=== PATIENT | female | born 1980 | race Caucasian/White ===

== ENCOUNTER 2017-10-15 11:56 | Emergency (ER) | payer MEDICAID ==
[~2017-10-15] VITALS: Ht 157.5 cm; Wt 95.0 kg
[2017-10-15] MEDS ORDERED: METH-360 PO (12:38)
[2017-10-15] MEDS ORDERED: NAPR-56 PO (12:39)
[2017-10-15] MEDS ORDERED: ketorolac tromethamine 15mg/ml inj. IM ONE (12:40)
[2017-10-15 12:52] VITALS: BP 154/99
== END 2017-10-15 12:54 | disposition home or self-care (01) ==
LOC: ER 11:56
DX: G89.29 Other chronic pain (principal); M54.5 Low back pain; I10 Essential (primary) hypertension; J44.9 Chronic obstructive pulmonary disease, unspecified; Z79.899 Other long term (current) drug therapy; Z87.891 Personal history of nicotine dependence
CPT/HCPCS: 96372; 99283; J1885

== ENCOUNTER 2018-04-18 17:14 | Emergency (ER) | payer MEDICAID ==
[~2018-04-18] VITALS: Ht 157.5 cm; Wt 98.2 kg
[~2018-04-18 17:14] MED LIST: METH-360 PO
[2018-04-18 18:02] LABS: BASOPHILS # (AUTO) 0.1 X10'3 (0-0.2); BASOPHILS % (AUTO) 0.7 % (0-1); EOSINOPHILS # (AUTO) 0.4 X10'3 (0-0.9); EOSINOPHILS % (AUTO) 3.6 % (0-6); HEMATOCRIT 40.6 % (35.0-45.0); HEMOGLOBIN 13.9 g/dl (12.0-16.0); LYMPHOCYTES # (AUTO) 3.3 X10'3 (1.1-4.8); LYMPHOCYTES % (AUTO) 31.8 % (21-51); MEAN CORPUSCULAR HEMOGLOBIN 30.4 PG (27.0-31.0); MEAN CORPUSCULAR HGB CONC 34.1 % (33.0-36.5); MEAN CORPUSCULAR VOLUME 89.2 FL (78-98); MEAN PLATELET VOLUME 7.9 FL (7.4-10.4); MONOCYTES # (AUTO) 0.6 X10'3 (0-0.9); MONOCYTES % (AUTO) 5.9 % (2-12); PLATELET COUNT 353 X10'3 (140-440); RED BLOOD COUNT 4.56 X10'6 (4.20-5.60); RED CELL DISTRIBUTION WIDTH 12.8 % (11.5-14.5); WHITE BLOOD COUNT 10.3 X10'3 (4.5-11.0)
[2018-04-18 18:13] LABS: PROTHROMBIN TIME 9.9 SECONDS (9.0-12.0)
[2018-04-18 18:16] LABS: ALANINE AMINOTRANSFERASE 86 U/L (12-78); ALKALINE PHOSPHATASE 82 IU/L (46-116); ANION GAP 14 (8-16); ASPARTATE AMINO TRANSFERASE 37 U/L (10-37); BILIRUBIN,TOTAL 0.3 MG/DL (0.1-1.0); BLOOD UREA NITROGEN 18 MG/DL (7-18); BUN/CREATININE RATIO 17.1 (6.6-38.0); CALCIUM 9.2 MG/DL (8.5-10.1); CHLORIDE 102 MMOL/L (99-107); CREATININE 1.05 MG/DL (0.40-0.90); GLUCOSE 113 MG/DL (70-104); LIPASE 103 U/L (73-393); SODIUM 143 MMOL/L (135-145); TOTAL CARBON DIOXIDE 26.8 MMOL/L (24-32); TOTAL PROTEIN 8.1 G/DL (6.4-8.2); eGFR 59 ML/MIN
--- NOTE | 2018-04-18 19:00 | NUR ---
PT AWARE OF THE NEED FOR A URINE SAMPLE. SHE STATES SHE IS UNABLE TO GO AT THIS TIME. PT GIVEN WATER AND ENCOURAGED TO TRY WITHIN NEXT 30 MINS.
[2018-04-18 19:49] LABS: URINE HCG NEGATIVE (NEG)
[2018-04-18 19:57] LABS: CLARITY,URINE CLEAR (Clear); COLOR,URINE YELLOW (Yellow); GLUCOSE, URINE NEGATIVE (Neg); KETONES,URINE NEGATIVE (Neg); LEUKOCYTE ESTERASE ,URINE NEGATIVE (Neg); NITRITES, URINE NEGATIVE (Neg); OCCULT BLOOD,URINE MODERATE (Neg); PH,URINE 5.5 (4.8-8.0); PROTEIN,URINE NEGATIVE (Neg); UROBILINOGEN,URINE 0.2 E.U/dL (0.2-1.0)
[2018-04-18 19:58] LABS: UA COLLECTION TYPE CLN CATCH MIDSTREAM
[2018-04-18] MEDS ORDERED: hyDRALAzine 10mg tablet PO STA (19:58)
[2018-04-18] MEDS ORDERED: potassium 10mEq/100ml NS w/LIDOcaine (10mg/bag) IV ONE (20:00)
[2018-04-18] MEDS ORDERED: magnesium oxide 400mg tablet PO ONE (20:00)
[2018-04-18] MEDS ORDERED: potassium Cl 20 mEq SR tablet PO ONE (20:00)
[2018-04-18] MEDS ORDERED: iohexol 300mg/ml 100ml inj. ONE (20:03)
[2018-04-18 20:10] LABS: MAGNESIUM 2.1 MG/DL (1.5-2.4)
[2018-04-18 20:12] LABS: BACTERIA,URINE FEW /HPF (Neg); MUCUS STRANDS FEW /LPF (Neg); SQUAMOUS EPITHELIAL CELL,UR MODERATE /LPF (FEW); WBC,URINE 0-4 /HPF (0-4)
--- NOTE | 2018-04-18 20:12 | NUR ---
pt to CT
[2018-04-18] MEDS ORDERED: POTA20TA19 PO (21:14)
[2018-04-18 21:23] VITALS: BP 106/64
== END 2018-04-18 21:40 | disposition home or self-care (01) ==
LOC: ER 17:14
DX: E87.6 Hypokalemia (principal); I10 Essential (primary) hypertension; J44.9 Chronic obstructive pulmonary disease, unspecified; G89.29 Other chronic pain; M54.9 Dorsalgia, unspecified; E03.9 Hypothyroidism, unspecified
CPT/HCPCS: 36415; 74177; 80053; 81001; 81025; 83690; 83735; 84443; 85025; 85610; 96365; 99284; J3480; Q9967

== ENCOUNTER 2018-06-16 08:28 | Day surgery (SDC) | payer MEDICAID ==
[~2018-06-16] VITALS: Ht 157.5 cm; Wt 97.7 kg
[2018-06-16] VITALS (15 sets, daily range): BP systolic 92–123; BP diastolic 51–77
[2018-06-16] MEDS ORDERED: oxyCODONE IR 5mg (immed. release) tablet PO PRN (08:50)
[2018-06-16] MEDS ORDERED: normal saline 1000ml 1,000 ML IV SCH ×2 (08:50→10:38)
[2018-06-16] MEDS ORDERED: POTA10TA36 PO (09:21)
[2018-06-16] MEDS ORDERED: ISOS30TA10 PO (09:21)
[2018-06-16] MEDS ORDERED: FURO-149 PO (09:21)
[2018-06-16] MEDS ORDERED: PANT-47 PO (09:21)
[2018-06-16 09:28] LABS: BASOPHILS # (AUTO) 0.1 X10'3 (0-0.2); EOSINOPHILS # (AUTO) 0.3 X10'3 (0-0.9); EOSINOPHILS % (AUTO) 3.8 % (0-6); HEMATOCRIT 41.8 % (35.0-45.0); LYMPHOCYTES # (AUTO) 2.3 X10'3 (1.1-4.8); LYMPHOCYTES % (AUTO) 30.7 % (21-51); MEAN CORPUSCULAR HEMOGLOBIN 29.9 PG (27.0-31.0); MEAN CORPUSCULAR HGB CONC 33.4 g/dL (33.0-36.5); MEAN CORPUSCULAR VOLUME 89.7 FL (78-98); MEAN PLATELET VOLUME 8.1 FL (7.4-10.4); MONOCYTES # (AUTO) 0.6 X10'3 (0-0.9); MONOCYTES % (AUTO) 7.6 % (2-12); NEUTROPHILS # (AUTO) 4.2 X10'3 (1.8-7.7); NEUTROPHILS % (AUTO) 56.9 % (42-75); PLATELET COUNT 305 X10'3 (140-440); RED BLOOD COUNT 4.66 X10'6 (4.20-5.60); RED CELL DISTRIBUTION WIDTH 13.3 % (11.5-14.5); WHITE BLOOD COUNT 7.5 X10'3 (4.5-11.0)
[2018-06-16] MEDS ORDERED: ALBU18HF2 INH (09:34)
[2018-06-16] MEDS ORDERED: FLUT16SP2 BOTHNARES (09:34)
[2018-06-16] MEDS ORDERED: IBUP-1984 PO (09:34)
[2018-06-16] MEDS ORDERED: LEVO112T5 PO (09:34)
[2018-06-16] MEDS ORDERED: CETI10CA PO (09:34)
[2018-06-16] MEDS ORDERED: PRAZ5CAP PO (09:34)
[2018-06-16] MEDS ORDERED: NITR0.4T51 SL (09:34)
[2018-06-16] MEDS ORDERED: FLUO40CA10 PO (09:34)
[2018-06-16] MEDS ORDERED: ERGO500014 PO (09:34)
[2018-06-16] MEDS ORDERED: GABA-532 PO (09:34)
[2018-06-16] MEDS ORDERED: CHOL50004 PO (09:34)
[2018-06-16 09:35] LABS: ANION GAP 12 (8-16); BLOOD UREA NITROGEN 15 MG/DL (7-18); BUN/CREATININE RATIO 16.3 (6.6-38.0); CALCIUM 9.7 MG/DL (8.5-10.1); CHLORIDE 107 MMOL/L (99-107); CREATININE 0.92 MG/DL (0.40-0.90); GLUCOSE 101 MG/DL (70-104); POTASSIUM 3.7 MMOL/L (3.5-5.1); SODIUM 144 MMOL/L (135-145); TOTAL CARBON DIOXIDE 24.6 MMOL/L (24-32); eGFR 68 ML/MIN
[2018-06-16] MEDS ORDERED: ASPI-1265 PO (09:36)
[2018-06-16] MEDS ORDERED: TEMA15CA5 PO (09:36)
[2018-06-16 09:37] LABS: PROTHROMBIN TIME 9.7 SECONDS (9.0-12.0)
[2018-06-16] MEDS ORDERED: fentaNYL/PF 50MCG/1 ML 2ML syringe IV STA (09:54)
[2018-06-16] MEDS ORDERED: midazolam 2 mg/2 ml injection IV STA (09:54)
[2018-06-16] MEDS ORDERED: LIDOcaine 1% 30ml preserv. free vial IJ STA (10:14)
[2018-06-16] MEDS ORDERED: HYDROcodone/acetaminophen 5mg/325mg tablet PO PRN (10:40)
== END 2018-06-16 12:40 | disposition home or self-care (01) ==
LOC: SSTAY O 08:28
PROVIDERS: ATTEND Radiology Vascular & Interventional Radiology
DX: B27.19 Cytomegaloviral mononucleosis with other complication (principal); E03.9 Hypothyroidism, unspecified; Z91.012 Allergy to eggs; G47.33 Obstructive sleep apnea (adult) (pediatric); F43.10 Post-traumatic stress disorder, unspecified; F32.9 Major depressive disorder, single episode, unspecified; E78.5 Hyperlipidemia, unspecified; M54.5 Low back pain; Z87.442 Personal history of urinary calculi; Z98.890 Other specified postprocedural states
CPT/HCPCS: 36415; 47000; 76942; 80048; 85025; 85610; J2250; J3010; J3490; J7030

== ENCOUNTER 2018-12-25 14:05 | Emergency (ER) | payer MEDICAID ==
[~2018-12-25] VITALS: Ht 157.5 cm; Wt 90.0 kg
[~2018-12-25 14:05] MED LIST changes: +ALBU18HF2 INH; +ASPI-1265 PO; +CETI10CA PO; +CHOL50004 PO; +ERGO500014 PO; +FLUO40CA10 PO; +FLUT16SP2 BOTHNARES; +FURO-149 PO; +GABA-532 PO; +IBUP-1984 PO; +ISOS30TA10 PO; +LEVO112T5 PO; -METH-360 PO; +NITR0.4T51 SL; +PANT-47 PO; +POTA10TA36 PO; +PRAZ5CAP PO; +TEMA15CA5 PO
[2018-12-25 14:43] VITALS: BP 122/77
[2018-12-25 15:19] LABS: BASOPHILS # (AUTO) 0.1 X10'3 (0-0.2); BASOPHILS % (AUTO) 0.9 % (0-1); EOSINOPHILS # (AUTO) 0.3 X10'3 (0-0.9); EOSINOPHILS % (AUTO) 2.4 % (0-6); HEMATOCRIT 41.9 % (35.0-45.0); HEMOGLOBIN 14.1 g/dl (12.0-16.0); LYMPHOCYTES # (AUTO) 3.4 X10'3 (1.1-4.8); LYMPHOCYTES % (AUTO) 30.9 % (21-51); MEAN CORPUSCULAR HEMOGLOBIN 30.8 PG (27.0-31.0); MEAN CORPUSCULAR HGB CONC 33.6 g/dL (33.0-36.5); MEAN CORPUSCULAR VOLUME 91.6 FL (78-98); MEAN PLATELET VOLUME 7.9 FL (7.4-10.4); MONOCYTES # (AUTO) 0.9 X10'3 (0-0.9); MONOCYTES % (AUTO) 8.1 % (2-12); NEUTROPHILS # (AUTO) 6.4 X10'3 (1.8-7.7); NEUTROPHILS % (AUTO) 57.7 % (42-75); PLATELET COUNT 335 X10'3 (140-440); RED BLOOD COUNT 4.58 X10'6 (4.20-5.60); RED CELL DISTRIBUTION WIDTH 13.1 % (11.5-14.5)
[2018-12-25 15:34] LABS: ALANINE AMINOTRANSFERASE 46 U/L (12-78); ALBUMIN 3.7 G/DL (3.4-5.0); ALBUMIN/GLOBULIN RATIO 0.9 (1.1-1.5); ALKALINE PHOSPHATASE 86 IU/L (46-116); ANION GAP 13 (8-16); ASPARTATE AMINO TRANSFERASE 18 U/L (10-37); BILIRUBIN,TOTAL 0.3 MG/DL (0.1-1.0); BLOOD UREA NITROGEN 9 MG/DL (7-18); BUN/CREATININE RATIO 10.3 (6.6-38.0); CALCIUM 9.1 MG/DL (8.5-10.1); CHLORIDE 104 MMOL/L (99-107); CREATININE 0.87 MG/DL (0.40-0.90); GLUCOSE 92 MG/DL (70-104); POTASSIUM 3.4 MMOL/L (3.5-5.1); SODIUM 142 MMOL/L (135-145); TOTAL CARBON DIOXIDE 24.8 MMOL/L (24-32); TOTAL PROTEIN 7.7 G/DL (6.4-8.2); eGFR 72 ML/MIN
[2018-12-25] MEDS ORDERED: ondansetron/PF 4mg/2ml inj IV ONE (19:00)
[2018-12-25] MEDS ORDERED: normal saline 1000ML IV soln IVB ONE (19:00)
--- NOTE | 2018-12-25 19:01 | NUR ---
Patient complaining of headache on right side at [place]. Daughter states that she has been having temors, states that her whole body shakes and that she cannot not speak clearly when she has these episodes. Addendum: 12/25/18 at 1903 by RITA Incorrect patient disregard
[2018-12-25] MEDS ORDERED: ondansetron 4mg rapidly disintigrating tab PO ONE (19:05)
[2018-12-25] MEDS ORDERED: ONDA8TAB13 PO (19:14)
[2018-12-25 19:18] LABS: URINE HCG NEGATIVE (NEG)
[2018-12-25 19:20] LABS: COLOR,URINE YELLOW (Yellow); GLUCOSE, URINE NEGATIVE (Neg); KETONES,URINE NEGATIVE (Neg); LEUKOCYTE ESTERASE ,URINE NEGATIVE (Neg); NITRITES, URINE NEGATIVE (Neg); OCCULT BLOOD,URINE NEGATIVE (Neg); PH,URINE 5.5 (4.8-8.0); PROTEIN,URINE NEGATIVE (Neg); UROBILINOGEN,URINE 0.2 E.U/dL (0.2-1.0)
[2018-12-25 19:21] LABS: UA COLLECTION TYPE NON-SPECIFIED
[2018-12-25 19:22] LABS: CLARITY,URINE Clear (Clear)
== END 2018-12-25 19:31 | disposition home or self-care (01) ==
LOC: ER 14:06
DX: K76.9 Liver disease, unspecified (principal); R11.10 Vomiting, unspecified; R19.7 Diarrhea, unspecified; I10 Essential (primary) hypertension; J44.9 Chronic obstructive pulmonary disease, unspecified; G89.29 Other chronic pain; G47.30 Sleep apnea, unspecified; E03.9 Hypothyroidism, unspecified; Z87.442 Personal history of urinary calculi; Z79.82 Long term (current) use of aspirin; Z79.899 Other long term (current) drug therapy
CPT/HCPCS: 36415; 80053; 81003; 81025; 85025; 85610; 99283

== ENCOUNTER → 2019-11-30 | Emergency (ER) | payer MEDICAID ==
[~2019-11-30] VITALS: Ht 157.5 cm; Wt 92.3 kg
[~2019-11-30] MED LIST changes: +ONDA8TAB13 PO; +morphine 10mg/ml inj. IV ONE; +normal saline 1000ML IV soln IVB ONE; +ondansetron/PF 4mg/2ml inj IV ONE
[2019-11-30 09:08] LABS: BASOPHILS % (AUTO) 0.3 % (0-1); EOSINOPHILS # (AUTO) 0.3 X10'3 (0-0.9); HEMATOCRIT 42.1 % (35.0-45.0); HEMOGLOBIN 14.4 g/dl (12.0-16.0); LYMPHOCYTES # (AUTO) 2.8 X10'3 (1.1-4.8); LYMPHOCYTES % (AUTO) 35.2 % (21-51); MEAN CORPUSCULAR HEMOGLOBIN 31.4 PG (27.0-31.0); MEAN CORPUSCULAR HGB CONC 34.2 g/dL (33.0-36.5); MEAN CORPUSCULAR VOLUME 91.6 FL (78-98); MEAN PLATELET VOLUME 7.8 FL (7.4-10.4); MONOCYTES # (AUTO) 0.5 X10'3 (0-0.9); MONOCYTES % (AUTO) 6.5 % (2-12); NEUTROPHILS # (AUTO) 4.3 X10'3 (1.8-7.7); PLATELET COUNT 285 X10'3 (140-440); RED CELL DISTRIBUTION WIDTH 13.1 % (11.5-14.5); WHITE BLOOD COUNT 8.1 X10'3 (4.5-11.0)
[2019-11-30 09:19] LABS: ALANINE AMINOTRANSFERASE 92 U/L (12-78); ALBUMIN 3.9 G/DL (3.4-5.0); ALBUMIN/GLOBULIN RATIO 0.9 (1.1-1.5); ALKALINE PHOSPHATASE 81 IU/L (46-116); AMYLASE 47 U/L (25-115); ANION GAP 11 (8-16); ASPARTATE AMINO TRANSFERASE 36 U/L (10-37); BILIRUBIN,TOTAL 0.4 MG/DL (0.1-1.0); BLOOD UREA NITROGEN 11 MG/DL (7-18); BUN/CREATININE RATIO 14.9 (6.6-38.0); CALCIUM 9.4 MG/DL (8.5-10.1); CHLORIDE 106 MMOL/L (99-107); CREATININE 0.74 MG/DL (0.40-0.90); GLUCOSE 103 MG/DL (70-104); LIPASE 97 U/L (73-393); POTASSIUM 4.1 MMOL/L (3.5-5.1); SODIUM 140 MMOL/L (135-145); TOTAL CARBON DIOXIDE 23.4 MMOL/L (24-32); TOTAL PROTEIN 8.1 G/DL (6.4-8.2); eGFR 87 ML/MIN
--- NOTE | 2019-11-30 10:43 | NUR ---
pt out of room to CT
--- NOTE | 2019-11-30 10:57 | NUR ---
back from CT
[2019-11-30 11:14] VITALS: BP 121/74
--- NOTE | 2019-11-30 11:47 | NUR ---
sent pt to the bathroom for urine
[2019-11-30 12:01] LABS: CLARITY,URINE SLIGHTLY CLOUDY (Clear); COLOR,URINE YELLOW (Yellow); GLUCOSE, URINE NEGATIVE (Neg); KETONES,URINE NEGATIVE (Neg); LEUKOCYTE ESTERASE ,URINE NEGATIVE (Neg); NITRITES, URINE NEGATIVE (Neg); OCCULT BLOOD,URINE NEGATIVE (Neg); PH,URINE 5.5 (4.8-8.0); PROTEIN,URINE NEGATIVE (Neg); UROBILINOGEN,URINE 0.2 E.U/dL (0.2-1.0)
[2019-11-30 12:07] LABS: UA COLLECTION TYPE CLN CATCH MIDSTREAM
[2019-11-30 12:08] LABS: MUCUS STRANDS MODERATE /LPF (Neg)
[2019-11-30 12:09] LABS: BACTERIA,URINE 1+ /HPF (Neg); SQUAMOUS EPITHELIAL CELL,UR MODERATE /LPF (FEW)
[2019-11-30 12:10] LABS: RBC,URINE 0-2 /HPF (0-2); WBC,URINE 0-4 /HPF (0-4)
== END | disposition home or self-care (01) ==
LOC: ER 08:35
DX: K80.20 Calculus of gallbladder without cholecystitis without obstruction (principal); K76.0 Fatty (change of) liver, not elsewhere classified; N20.0 Calculus of kidney; I10 Essential (primary) hypertension; J44.9 Chronic obstructive pulmonary disease, unspecified; G47.30 Sleep apnea, unspecified; G89.29 Other chronic pain; E03.9 Hypothyroidism, unspecified; Z98.890 Other specified postprocedural states; Z88.6 Allergy status to analgesic agent; Z88.8 Allergy status to other drugs, medicaments and biological substances; Z79.899 Other long term (current) drug therapy
CPT/HCPCS: 36415; 74176; 80053; 81001; 82150; 83690; 85025; 96361; 96374; 96375; 99284; J2270; J2405; J7030

== ENCOUNTER 2019-12-15 20:09 | Emergency (ER) | payer MEDICAID ==
[~2019-12-15] VITALS: Ht 157.5 cm; Wt 93.2 kg
[~2019-12-15 20:09] MED LIST changes: -morphine 10mg/ml inj. IV ONE; -normal saline 1000ML IV soln IVB ONE; -ondansetron/PF 4mg/2ml inj IV ONE
[2019-12-15 20:19] VITALS: BP 133/86
[2019-12-15 21:58] LABS: BASOPHILS # (AUTO) 0.1 X10'3 (0-0.2); BASOPHILS % (AUTO) 0.7 % (0-1); EOSINOPHILS # (AUTO) 0.4 X10'3 (0-0.9); EOSINOPHILS % (AUTO) 2.9 % (0-6); HEMATOCRIT 39.6 % (35.0-45.0); HEMOGLOBIN 13.4 g/dl (12.0-16.0); LYMPHOCYTES # (AUTO) 3.4 X10'3 (1.1-4.8); LYMPHOCYTES % (AUTO) 26.3 % (21-51); MEAN CORPUSCULAR HEMOGLOBIN 31.7 PG (27.0-31.0); MEAN CORPUSCULAR HGB CONC 33.8 g/dL (33.0-36.5); MEAN CORPUSCULAR VOLUME 93.9 FL (78-98); MEAN PLATELET VOLUME 8.2 FL (7.4-10.4); MONOCYTES # (AUTO) 1.1 X10'3 (0-0.9); MONOCYTES % (AUTO) 8.6 % (2-12); NEUTROPHILS # (AUTO) 7.9 X10'3 (1.8-7.7); NEUTROPHILS % (AUTO) 61.5 % (42-75); PLATELET COUNT 315 X10'3 (140-440); RED BLOOD COUNT 4.22 X10'6 (4.20-5.60); WHITE BLOOD COUNT 12.9 X10'3 (4.5-11.0)
[2019-12-15 22:12] LABS: ALANINE AMINOTRANSFERASE 69 U/L (12-78); ALBUMIN 3.8 G/DL (3.4-5.0); ALBUMIN/GLOBULIN RATIO 0.9 (1.1-1.5); ALKALINE PHOSPHATASE 89 IU/L (46-116); ANION GAP 8 (8-16); ASPARTATE AMINO TRANSFERASE 25 U/L (10-37); BILIRUBIN,TOTAL 0.3 MG/DL (0.1-1.0); BLOOD UREA NITROGEN 14 MG/DL (7-18); BUN/CREATININE RATIO 13.1 (6.6-38.0); CALCIUM 9.8 MG/DL (8.5-10.1); CHLORIDE 105 MMOL/L (99-107); CREATININE 1.07 MG/DL (0.40-0.90); GLUCOSE 93 MG/DL (70-104); POTASSIUM 3.8 MMOL/L (3.5-5.1); SODIUM 143 MMOL/L (135-145); TOTAL CARBON DIOXIDE 30.2 MMOL/L (24-32); TOTAL PROTEIN 7.9 G/DL (6.4-8.2); eGFR 57 ML/MIN
[2019-12-15] MEDS ORDERED: CefTRIAXone 1000mg IM Kit (w/lidocaine diluent) IM ONE (22:30)
[2019-12-15] MEDS ORDERED: DOXY100C2 PO (22:45)
[2019-12-15] MEDS ORDERED: CIPR-259 PO (22:45)
[2019-12-15] MEDS ORDERED: HYDR-3965 PO (23:06)
== END 2019-12-15 23:35 | disposition home or self-care (01) ==
LOC: ER 20:10
DX: S91.331A Puncture wound without foreign body, right foot, initial encounter (principal); L02.611 Cutaneous abscess of right foot; I10 Essential (primary) hypertension; J44.9 Chronic obstructive pulmonary disease, unspecified; G47.30 Sleep apnea, unspecified; E03.9 Hypothyroidism, unspecified; G89.29 Other chronic pain; Z98.890 Other specified postprocedural states; Z79.82 Long term (current) use of aspirin; Z79.4 Long term (current) use of insulin; Z79.899 Other long term (current) drug therapy; W60.XXXA Contact with nonvenomous plant thorns and spines and sharp leaves, initial encounter; Y93.89 Activity, other specified; Y92.89 Other specified places as the place of occurrence of the external cause; Y99.8 Other external cause status
CPT/HCPCS: 36415; 73630; 80053; 84145; 85025; 96372; 99284; J0696

== ENCOUNTER 2019-12-17 12:40 | Emergency (ER) | payer MEDICAID ==
[~2019-12-17] VITALS: Ht 157.5 cm; Wt 90.0 kg
[~2019-12-17 12:40] MED LIST changes: +CIPR-259 PO; +DOXY100C2 PO; +HYDR-3965 PO
[2019-12-17] MEDS ORDERED: vancomycin/NS 1 GM ADD-VANTAGE 250 ML IV ONE (13:10)
[2019-12-17] MEDS ORDERED: fentaNYL/PF 50MCG/1 ML 2ML syringe IV ONE (13:10)
[2019-12-17] MEDS ORDERED: ondansetron/PF 4mg/2ml inj IV ONE (13:10)
[2019-12-17] MEDS ORDERED: CefTRIAXone 2gm/D5W 50ml 50 ML IV ONE (13:10)
[2019-12-17] MEDS ORDERED: iohexol 300mg/ml 100ml inj. ONE (13:21)
[2019-12-17 14:09] LABS: BASOPHILS # (AUTO) 0.1 X10'3 (0-0.2); BASOPHILS % (AUTO) 1.1 % (0-1); EOSINOPHILS # (AUTO) 0.3 X10'3 (0-0.9); EOSINOPHILS % (AUTO) 3.1 % (0-6); HEMATOCRIT 38.7 % (35.0-45.0); HEMOGLOBIN 12.8 g/dl (12.0-16.0); MEAN CORPUSCULAR HEMOGLOBIN 31.1 PG (27.0-31.0); MEAN CORPUSCULAR HGB CONC 33.2 g/dL (33.0-36.5); MEAN CORPUSCULAR VOLUME 93.8 FL (78-98); MEAN PLATELET VOLUME 7.8 FL (7.4-10.4); MONOCYTES # (AUTO) 0.6 X10'3 (0-0.9); MONOCYTES % (AUTO) 6.1 % (2-12); NEUTROPHILS # (AUTO) 5.7 X10'3 (1.8-7.7); NEUTROPHILS % (AUTO) 58.7 % (42-75); PLATELET COUNT 337 X10'3 (140-440); RED BLOOD COUNT 4.12 X10'6 (4.20-5.60); RED CELL DISTRIBUTION WIDTH 13.3 % (11.5-14.5); WHITE BLOOD COUNT 9.7 X10'3 (4.5-11.0)
[2019-12-17] MEDS ORDERED: HYDR-4353 PO (14:27)
[2019-12-17] MEDS ORDERED: ONDA4TAB6 PO (14:27)
[2019-12-17 14:29] LABS: ALANINE AMINOTRANSFERASE 55 U/L (12-78); ALBUMIN 3.5 G/DL (3.4-5.0); ALBUMIN/GLOBULIN RATIO 0.9 (1.1-1.5); ALKALINE PHOSPHATASE 74 IU/L (46-116); ANION GAP 11 (8-16); ASPARTATE AMINO TRANSFERASE 32 U/L (10-37); BILIRUBIN,TOTAL 0.3 MG/DL (0.1-1.0); BLOOD UREA NITROGEN 15 MG/DL (7-18); CALCIUM 9.2 MG/DL (8.5-10.1); CHLORIDE 104 MMOL/L (99-107); CREATININE 0.88 MG/DL (0.40-0.90); GLUCOSE 93 MG/DL (70-104); POTASSIUM 3.8 MMOL/L (3.5-5.1); SODIUM 139 MMOL/L (135-145); TOTAL CARBON DIOXIDE 24.1 MMOL/L (24-32); TOTAL PROTEIN 7.4 G/DL (6.4-8.2); eGFR 71 ML/MIN
[2019-12-17 16:56] VITALS: BP 106/64
== END 2019-12-17 16:58 | disposition home or self-care (01) ==
LOC: ER 12:40
DX: S91.331A Puncture wound without foreign body, right foot, initial encounter (principal); L03.115 Cellulitis of right lower limb; M79.671 Pain in right foot; M79.89 Other specified soft tissue disorders; I10 Essential (primary) hypertension; J44.9 Chronic obstructive pulmonary disease, unspecified; E03.9 Hypothyroidism, unspecified; G89.29 Other chronic pain; Z87.01 Personal history of pneumonia (recurrent); Z87.442 Personal history of urinary calculi; Z98.890 Other specified postprocedural states; Z79.82 Long term (current) use of aspirin; Z79.899 Other long term (current) drug therapy; X58.XXXA Exposure to other specified factors, initial encounter; Y93.89 Activity, other specified; Y92.89 Other specified places as the place of occurrence of the external cause; Y99.8 Other external cause status
CPT/HCPCS: 36415; 73701; 80053; 83605; 84145; 85025; 87040; 96365; 96367; 96375; 99285; J0696; J2405; J3010; J3370; Q9967

== ENCOUNTER 2020-01-25 08:39 | Outpatient (CLI) | payer MEDICAID ==
[~2020-01-25 08:39] MED LIST changes: -CIPR-259 PO; -DOXY100C2 PO; -HYDR-3965 PO; +ONDA4TAB6 PO
== END 2020-01-25 23:59 | disposition home or self-care (01) ==
LOC: RAD 08:39
PROVIDERS: ATTEND Psychiatry & Neurology Neurology
DX: R25.1 Tremor, unspecified (principal)
CPT/HCPCS: 95816

== ENCOUNTER 2020-05-03 08:38 | Day surgery (SDC) | payer MEDICAID ==
[2020-04-27 10:43] LABS: BASOPHILS # (AUTO) 0.1 X10'3 (0-0.2); BASOPHILS % (AUTO) 1.1 % (0-1); EOSINOPHILS # (AUTO) 0.4 X10'3 (0-0.9); LYMPHOCYTES # (AUTO) 3.2 X10'3 (1.1-4.8); LYMPHOCYTES % (AUTO) 35.7 % (21-51); MEAN CORPUSCULAR HEMOGLOBIN 31.2 PG (27.0-31.0); MEAN CORPUSCULAR HGB CONC 33.5 g/dL (33.0-36.5); MEAN CORPUSCULAR VOLUME 93.2 FL (78-98); MEAN PLATELET VOLUME 8.5 FL (7.4-10.4); MONOCYTES # (AUTO) 0.7 X10'3 (0-0.9); MONOCYTES % (AUTO) 7.4 % (2-12); NEUTROPHILS # (AUTO) 4.6 X10'3 (1.8-7.7); NEUTROPHILS % (AUTO) 51.8 % (42-75); PRE OP HEMATOCRIT 42.7 % (35.0-45.0); PRE OP HEMOGLOBIN 14.3 g/dL (12.0-16.0); PRE OP PLATELET COUNT 342 X10'3 (140-440); RED BLOOD COUNT 4.58 X10'6 (4.20-5.60); RED CELL DISTRIBUTION WIDTH 13.4 % (11.5-14.5)
[2020-04-27 10:59] LABS: ALBUMIN 3.8 G/DL (3.4-5.0); ALBUMIN/GLOBULIN RATIO 0.9 (1.1-1.5); ALKALINE PHOSPHATASE 93 IU/L (46-116); BLOOD UREA NITROGEN 13 MG/DL (7-18); BUN/CREATININE RATIO 16.7 (6.6-38.0); CALCIUM 8.8 MG/DL (8.5-10.1); CHLORIDE 109 MMOL/L (99-107); CREATININE 0.78 MG/DL (0.40-0.90); PRE OP ANION GAP 9 (8-16); PRE OP AST 37 U/L (10-37); PRE OP BILIRUB, TOTAL 0.2 MG/DL (0.0-1.0); PRE OP GLUCOSE 96 MG/DL (70-104); PRE OP POTASSIUM 4.1 MMOL/L (3.4-5.1); PRE OP SODIUM 145 MMOL/L (135-145); TOTAL CARBON DIOXIDE 26.7 MMOL/L (24-32); TOTAL PROTEIN 7.9 G/DL (6.4-8.2); eGFR 82 ML/MIN
[2020-04-27 11:00] LABS: PRE OP ALT 91 U/L (30-65)
[~2020-05-03] VITALS: Ht 157.5 cm; Wt 93.3 kg
[2020-05-03] VITALS (11 sets, daily range): BP systolic 107–153; BP diastolic 69–94
[~2020-05-03 08:38] MED LIST changes: +ARMO200T PO; +FENO145T38 PO; +INDOCYANINE GREEN 25 MG/10 ML VIAL IV ONE; +ceFAZolin 2gm in dextrose, iso 50 ML IV ONE; +famotidine 20mg tablet PO ONE; +ringers solution, lacted 1,000 ML IV SCH
[2020-05-03] MEDS ORDERED: LIDOcaine 1% (10mg/ml) 2ml vial ONE (09:04)
[2020-05-03] MEDS ORDERED: LIDOcaine 1% 30ml preserv. free vial ONE (09:13)
[2020-05-03] MEDS ORDERED: BUPIVAcaine/PF 2.5 mg/ml (0.25%) 30ml vial ONE (09:14)
[2020-05-03] MEDS ORDERED: ondansetron/PF 4mg/2ml inj ONE (09:23)
[2020-05-03] MEDS ORDERED: sevoflurane 250ml liquid IH ONE (09:36)
[2020-05-03] MEDS ORDERED: fentaNYL /PF 50mcg/ml 5ml ampule ONE (09:45)
[2020-05-03] MEDS ORDERED: neostigmine methylsulfate 1 MG/ML 10ml vial ONE (10:42)
[2020-05-03] MEDS ORDERED: rocuronium 10mg/ml inj IV ONE (10:42)
[2020-05-03] MEDS ORDERED: LIDOcaine 2% (20mg/ml) 5ml vial ONE (10:42)
[2020-05-03] MEDS ORDERED: propofol inj 20 ML IV ONE (10:42)
[2020-05-03] MEDS ORDERED: glycopyrrolate 0.2mg/ml inj ONE (10:42)
[2020-05-03] MEDS ORDERED: dexamethasone sod phosphate 4mg/ml inj. ONE (10:42)
--- NOTE | 2020-05-03 10:50 | NUR ---
Received from [place] via [facility], accompanied by Anesthesiologist DR SILVA and report given by Anesthesiolgist. PATIENT WAKING UP, PAINFUL ABD BUT O2 SATS IN 80'S WITH 10LTR MASK, DR SILVA AT BEDSIDE-[place] ORDERED, PT ENC TO DB&C, PT HAS HX OF SLEEP APNEA-DISCUSSED WITH PT THE NEED TO WEAR CPAP WHILE AT HOME AND SLEEP IN A RECLINER IF POSSIBLE, OTHER V/S WNL, NEUROVASCULAR CHECKS INTACT, 20G PIV RFA, SCD ON, 3 BANDAIDS TO LAP SIGHTS OF ABDOMEN CDI.
[2020-05-03] MEDS ORDERED: HYDROcodone/acetaminophen 5mg/325mg tablet PO PRN ×2 (10:55)
[2020-05-03] MEDS ORDERED: ondansetron/PF 4mg/2ml inj IV PRN (11:00)
[2020-05-03] MEDS ORDERED: morphine 2 MG/ML inj. syringe IV PRN (11:00)
[2020-05-03] MEDS ORDERED: ringers solution, lacted 1,000 ML IV SCH (11:00)
[2020-05-03] MEDS ORDERED: ipratropium/albuterol 3ml nebule NEB PRN (11:00)
[2020-05-03] MEDS ORDERED: morphine 4 MG/ML inj SYRINge IV PRN (11:00)
[2020-05-03] MEDS ORDERED: proCHLORperazine 10 MG/2 ml inj IV PRN (11:00)
[2020-05-03] MEDS ORDERED: meperidine/PF 25mg/ml syringe IV PRN ×3 (11:00)
--- NOTE | 2020-05-03 12:40 | NUR ---
PATIENT A&OX4, STILL PAINFUL ABD- 1 PO NORCO GIVEN, DISCUSSED NEED TO WALK A BIT TO HELP WITH POST OP PAIN D/T GAS IN [place], ALSO REMINDED PT AND FAMILY OF NEED FOR PT TO WEAR CPAP WHEN SLEEPING/RESTING FOR THE NEXT 24HRS, V/S WNL, 20G PIV RFA D/C, SCD OFF, 3 BANDAIDS TO LAP SITES OF ABDOMEN CDI.. I HAVE REVIEWED D/C INSTRUCTIONS WITH PATIENT AND FAMILY HAVE VERBALIZED UNDERSTANDING.PATIENT WAS D/C HOME WITH ALL BELONGINGS AND FAMILY GAVE TRANSPORT HOME.
== END 2020-05-03 12:40 | disposition home or self-care (01) ==
LOC: PAS 08:38
PROVIDERS: ATTEND Surgery
DX: K82.4 Cholesterolosis of gallbladder (principal); F41.8 Other specified anxiety disorders; G47.30 Sleep apnea, unspecified; E11.9 Type 2 diabetes mellitus without complications; F43.10 Post-traumatic stress disorder, unspecified; F32.9 Major depressive disorder, single episode, unspecified; Z87.442 Personal history of urinary calculi; Z90.710 Acquired absence of both cervix and uterus; Z98.890 Other specified postprocedural states; Z86.010 Personal history of colon polyps; Z87.891 Personal history of nicotine dependence; J45.909 Unspecified asthma, uncomplicated; Z88.8 Allergy status to other drugs, medicaments and biological substances; Z91.012 Allergy to eggs; Z91.040 Latex allergy status; Z91.010 Allergy to peanuts; Z91.013 Allergy to seafood; Z20.822 Contact with and (suspected) exposure to COVID-19; Z91.018 Allergy to other foods; Z79.899 Other long term (current) drug therapy; E03.9 Hypothyroidism, unspecified
CPT/HCPCS: 36415; 47563; 80053; 82948; 85025; 87635; 94640; 94760; J1100; J2001; J2175; J2405; J2704; J2710; J3010; J3490; J7120; A4215; A4618; A7000

== ENCOUNTER 2020-07-05 11:55 | Day surgery (SDC) | payer MEDICAID ==
[~2020-07-05] VITALS: Ht 157.5 cm; Wt 95.1 kg
[2020-07-05] VITALS (8 sets, daily range): BP systolic 102–120; BP diastolic 60–78
[~2020-07-05 11:55] MED LIST changes: -INDOCYANINE GREEN 25 MG/10 ML VIAL IV ONE; -ceFAZolin 2gm in dextrose, iso 50 ML IV ONE; -famotidine 20mg tablet PO ONE; -ringers solution, lacted 1,000 ML IV SCH
[2020-07-05] MEDS ORDERED: MIDAZolam 1mg/ml 10ml vial IV ONE (12:20)
[2020-07-05] MEDS ORDERED: fentaNYL/PF 50MCG/1 ML 2ML syringe IV ONE (12:20)
[2020-07-05 12:44] LABS: BASOPHILS # (AUTO) 0.1 X10'3 (0-0.2); EOSINOPHILS # (AUTO) 0.3 X10'3 (0-0.9); EOSINOPHILS % (AUTO) 3.3 % (0-6); HEMATOCRIT 43.2 % (35.0-45.0); HEMOGLOBIN 14.5 g/dl (12.0-16.0); LYMPHOCYTES # (AUTO) 3.4 X10'3 (1.1-4.8); MEAN CORPUSCULAR HEMOGLOBIN 31.3 PG (27.0-31.0); MEAN CORPUSCULAR HGB CONC 33.5 g/dL (33.0-36.5); MEAN CORPUSCULAR VOLUME 93.5 FL (78-98); MEAN PLATELET VOLUME 8.4 FL (7.4-10.4); MONOCYTES # (AUTO) 0.6 X10'3 (0-0.9); MONOCYTES % (AUTO) 5.8 % (2-12); NEUTROPHILS # (AUTO) 5.6 X10'3 (1.8-7.7); NEUTROPHILS % (AUTO) 55.9 % (42-75); PLATELET COUNT 281 X10'3 (140-440); RED BLOOD COUNT 4.62 X10'6 (4.20-5.60)
[2020-07-05 12:50] LABS: ALBUMIN 3.8 G/DL (3.4-5.0); ANION GAP 14 (8-16); BLOOD UREA NITROGEN 10 MG/DL (7-18); BUN/CREATININE RATIO 13.2 (6.6-38.0); CALCIUM 9.2 MG/DL (8.5-10.1); CHLORIDE 109 MMOL/L (99-107); CREATININE 0.76 MG/DL (0.40-0.90); GLUCOSE 88 MG/DL (70-104); SODIUM 146 MMOL/L (135-145); TOTAL CARBON DIOXIDE 23.5 MMOL/L (24-32); eGFR 84 ML/MIN
[2020-07-05] MEDS ORDERED: HYDROcodone/acetaminophen 5mg/325mg tablet PO PRN ×2 (13:10)
[2020-07-05] MEDS ORDERED: HYDROmorphone inj. 0.5 MG/0.5 ML DISP.SYRIN IV ONE (15:05)
== END 2020-07-05 16:15 | disposition home or self-care (01) ==
LOC: SSTAY O 11:55
PROVIDERS: ATTEND Radiology Vascular & Interventional Radiology
DX: K76.0 Fatty (change of) liver, not elsewhere classified (principal); Z90.49 Acquired absence of other specified parts of digestive tract; Z91.018 Allergy to other foods; Z91.012 Allergy to eggs; Z91.010 Allergy to peanuts; Z79.82 Long term (current) use of aspirin; Z79.899 Other long term (current) drug therapy
CPT/HCPCS: 36415; 47000; 76942; 80048; 85025; 85610; 99152; J1170; J2250; J3010

== ENCOUNTER 2020-08-01 09:39 | Emergency (ER) | payer MEDICAID ==
[~2020-08-01] VITALS: Ht 157.5 cm; Wt 97.0 kg
[~2020-08-01 09:39] MED LIST changes: -GABA-532 PO
[2020-08-01 10:00] VITALS: BP 139/79
[2020-08-01] MEDS ORDERED: ondansetron/PF 4mg/2ml inj IV ONE (10:10)
[2020-08-01 10:35] LABS: BASOPHILS # (AUTO) 0.1 X10'3 (0-0.2); BASOPHILS % (AUTO) 1.3 % (0-1); EOSINOPHILS # (AUTO) 0.4 X10'3 (0-0.9); EOSINOPHILS % (AUTO) 4.4 % (0-6); HEMATOCRIT 44.2 % (35.0-45.0); HEMOGLOBIN 14.7 g/dl (12.0-16.0); LYMPHOCYTES # (AUTO) 3.2 X10'3 (1.1-4.8); LYMPHOCYTES % (AUTO) 37.7 % (21-51); MEAN CORPUSCULAR HEMOGLOBIN 31.1 PG (27.0-31.0); MEAN CORPUSCULAR HGB CONC 33.4 g/dL (33.0-36.5); MEAN CORPUSCULAR VOLUME 93.1 FL (78-98); MEAN PLATELET VOLUME 8.1 FL (7.4-10.4); MONOCYTES # (AUTO) 0.6 X10'3 (0-0.9); MONOCYTES % (AUTO) 6.5 % (2-12); NEUTROPHILS # (AUTO) 4.3 X10'3 (1.8-7.7); NEUTROPHILS % (AUTO) 50.1 % (42-75); PLATELET COUNT 302 X10'3 (140-440); RED BLOOD COUNT 4.74 X10'6 (4.20-5.60); RED CELL DISTRIBUTION WIDTH 12.9 % (11.5-14.5); WHITE BLOOD COUNT 8.5 X10'3 (4.5-11.0)
[2020-08-01 10:40] LABS: URINE HCG NEGATIVE (NEG)
[2020-08-01 10:42] LABS: CLARITY,URINE SLIGHTLY CLOUDY (Clear); COLOR,URINE YELLOW (Yellow); GLUCOSE, URINE NEGATIVE (Neg); KETONES,URINE NEGATIVE (Neg); LEUKOCYTE ESTERASE ,URINE NEGATIVE (Neg); NITRITES, URINE NEGATIVE (Neg); OCCULT BLOOD,URINE LARGE (Neg); PH,URINE 6.5 (4.8-8.0); PROTEIN,URINE TRACE mg/dl (Neg); UROBILINOGEN,URINE 0.2 E.U/dL (0.2-1.0)
[2020-08-01 10:45] LABS: UA COLLECTION TYPE VOIDED
[2020-08-01 10:49] LABS: BACTERIA,URINE 2+ /HPF (Neg); MUCUS STRANDS FEW /LPF (Neg); RBC,URINE TNTC /HPF (0-2); SQUAMOUS EPITHELIAL CELL,UR MANY /LPF (FEW)
[2020-08-01 10:52] LABS: ALANINE AMINOTRANSFERASE 81 U/L (12-78); ALBUMIN 3.8 G/DL (3.4-5.0); ALBUMIN/GLOBULIN RATIO 0.9 (1.1-1.5); ALKALINE PHOSPHATASE 97 IU/L (46-116); ANION GAP 9 (8-16); ASPARTATE AMINO TRANSFERASE 36 U/L (10-37); BILIRUBIN,TOTAL 0.3 MG/DL (0.1-1.0); BLOOD UREA NITROGEN 11 MG/DL (7-18); BUN/CREATININE RATIO 15.1 (6.6-38.0); CALCIUM 9.4 MG/DL (8.5-10.1); CHLORIDE 107 MMOL/L (99-107); CREATININE 0.73 MG/DL (0.40-0.90); GLUCOSE 92 MG/DL (70-104); LIPASE 66 U/L (73-393); SODIUM 144 MMOL/L (135-145); TOTAL CARBON DIOXIDE 27.9 MMOL/L (24-32); eGFR 88 ML/MIN
[2020-08-01] MEDS ORDERED: ketorolac tromethamine 15mg/ml inj. IM ONE (11:30)
[2020-08-01] MEDS ORDERED: ONDA4TAB6 PO (11:34)
[2020-08-01] MEDS ORDERED: FLO0.4C PO (11:34)
[2020-08-01] MEDS ORDERED: HYDR-3965 PO (11:34)
== END 2020-08-01 11:54 | disposition home or self-care (01) ==
LOC: ER 09:40
DX: N20.0 Calculus of kidney (principal); I10 Essential (primary) hypertension; J44.9 Chronic obstructive pulmonary disease, unspecified; E07.9 Disorder of thyroid, unspecified; G47.30 Sleep apnea, unspecified; G89.29 Other chronic pain; Z87.01 Personal history of pneumonia (recurrent); K72.90 Hepatic failure, unspecified without coma; Z79.899 Other long term (current) drug therapy; Z79.82 Long term (current) use of aspirin; Z91.010 Allergy to peanuts; Z91.012 Allergy to eggs; Z87.442 Personal history of urinary calculi; Z91.013 Allergy to seafood; Z91.018 Allergy to other foods
CPT/HCPCS: 36415; 80053; 81001; 81025; 83690; 85025; 96372; 99283; J1885

== ENCOUNTER 2020-09-27 00:13 | Emergency (ER) | payer MEDICAID ==
[~2020-09-27] VITALS: Ht 157.5 cm; Wt 95.5 kg
[2020-09-27 01:05] LABS: CLARITY,URINE CLEAR (Clear); COLOR,URINE STRAW (Yellow); GLUCOSE, URINE NEGATIVE (Neg); KETONES,URINE NEGATIVE (Neg); LEUKOCYTE ESTERASE ,URINE NEGATIVE (Neg); NITRITES, URINE NEGATIVE (Neg); OCCULT BLOOD,URINE LARGE (Neg); PH,URINE 5.5 (4.8-8.0); PROTEIN,URINE NEGATIVE (Neg); UROBILINOGEN,URINE 0.2 E.U/dL (0.2-1.0)
[2020-09-27 01:07] LABS: URINE HCG NEGATIVE (NEG)
[2020-09-27 01:07] LABS: BASOPHILS # (AUTO) 0.1 X10'3 (0-0.2); BASOPHILS % (AUTO) 1.1 % (0-1); EOSINOPHILS # (AUTO) 0.5 X10'3 (0-0.9); EOSINOPHILS % (AUTO) 4.6 % (0-6); HEMATOCRIT 41.2 % (35.0-45.0); HEMOGLOBIN 13.9 g/dl (12.0-16.0); LYMPHOCYTES # (AUTO) 4.5 X10'3 (1.1-4.8); LYMPHOCYTES % (AUTO) 37.5 % (21-51); MEAN CORPUSCULAR HGB CONC 33.7 g/dL (33.0-36.5); MONOCYTES % (AUTO) 8.6 % (2-12); NEUTROPHILS # (AUTO) 5.8 X10'3 (1.8-7.7); NEUTROPHILS % (AUTO) 48.2 % (42-75); PLATELET COUNT 339 X10'3 (140-440); RED BLOOD COUNT 4.48 X10'6 (4.20-5.60); RED CELL DISTRIBUTION WIDTH 13.5 % (11.5-14.5)
[2020-09-27] MEDS ORDERED: ketorolac trometh. 30mg/ml inj. IV ONE (01:10)
--- NOTE | 2020-09-27 01:10 | NUR ---
PT WRITHING IN PAIN, VOMITING AND CRYING. REQUESTING PAIN MEDS. SPOKE TO MD AND REC'D VERBAL ORDERS
[2020-09-27 01:14] LABS: BACTERIA,URINE FEW /HPF (Neg); SQUAMOUS EPITHELIAL CELL,UR FEW /LPF (FEW); WBC,URINE NONE SEEN /HPF (0-4)
[2020-09-27 01:16] LABS: ALANINE AMINOTRANSFERASE 78 U/L (12-78); ALBUMIN 3.6 G/DL (3.4-5.0); ALBUMIN/GLOBULIN RATIO 0.9 (1.1-1.5); ALKALINE PHOSPHATASE 92 IU/L (46-116); ANION GAP 11 (8-16); ASPARTATE AMINO TRANSFERASE 28 U/L (10-37); BILIRUBIN,TOTAL 0.3 MG/DL (0.1-1.0); BLOOD UREA NITROGEN 13 MG/DL (7-18); CALCIUM 8.8 MG/DL (8.5-10.1); CHLORIDE 110 MMOL/L (99-107); CREATININE 0.93 MG/DL (0.40-0.90); GLUCOSE 112 MG/DL (70-104); LIPASE 104 U/L (73-393); POTASSIUM 3.9 MMOL/L (3.5-5.1); SODIUM 145 MMOL/L (135-145); TOTAL CARBON DIOXIDE 23.9 MMOL/L (24-32); TOTAL PROTEIN 7.5 G/DL (6.4-8.2); eGFR 66 ML/MIN
[2020-09-27] MEDS ORDERED: ondansetron/PF 4mg/2ml inj IV ONE (01:20)
[2020-09-27 01:48] LABS: UA COLLECTION TYPE CLN CATCH MIDSTREAM
--- NOTE | 2020-09-27 02:11 | NUR ---
PT GIVEN WARM BLANKETS
[2020-09-27 02:46] VITALS: BP 123/87
[2020-09-27] MEDS ORDERED: morphine 4 MG/ML inj SYRINge IM ONE (02:55)
[2020-09-27] MEDS ORDERED: acetaminophen 325mg tablet PO ONE (02:55)
[2020-09-27] MEDS ORDERED: HYDR-3965 PO (02:59)
[2020-09-27] MEDS ORDERED: ONDA4TAB6 PO (02:59)
[2020-09-27] MEDS ORDERED: FLO0.4C PO (03:37)
== END 2020-09-27 03:44 | disposition home or self-care (01) ==
LOC: ER 00:14
DX: N95.1 Menopausal and female climacteric states (principal); R10.84 Generalized abdominal pain; R11.2 Nausea with vomiting, unspecified; I10 Essential (primary) hypertension; J44.9 Chronic obstructive pulmonary disease, unspecified; E03.9 Hypothyroidism, unspecified; G89.29 Other chronic pain; Z87.442 Personal history of urinary calculi; Z87.01 Personal history of pneumonia (recurrent); Z98.890 Other specified postprocedural states; Z91.012 Allergy to eggs; Z91.018 Allergy to other foods; Z91.010 Allergy to peanuts; Z91.013 Allergy to seafood; Z88.8 Allergy status to other drugs, medicaments and biological substances; Z79.82 Long term (current) use of aspirin; Z79.899 Other long term (current) drug therapy
CPT/HCPCS: 36415; 80053; 81001; 81025; 83690; 85025; 96372; 96374; 96375; 99284; J1885; J2270; J2405

== ENCOUNTER 2020-10-12 15:37 | Emergency (ER) | payer MEDICAID ==
[~2020-10-12] VITALS: Ht 157.5 cm; Wt 94.5 kg
[~2020-10-12 15:37] MED LIST changes: +FLO0.4C PO; +HYDR-3965 PO
[2020-10-12 16:14] VITALS: BP 136/93
[2020-10-12] MEDS ORDERED: HYDR-3965 PO (19:44)
== END 2020-10-12 19:54 | disposition home or self-care (01) ==
LOC: ER 15:37
DX: N20.0 Calculus of kidney (principal); R10.84 Generalized abdominal pain; I10 Essential (primary) hypertension; J44.9 Chronic obstructive pulmonary disease, unspecified; E03.9 Hypothyroidism, unspecified; G89.29 Other chronic pain; Z87.01 Personal history of pneumonia (recurrent); Z87.442 Personal history of urinary calculi; Z98.890 Other specified postprocedural states; Z91.012 Allergy to eggs; Z91.018 Allergy to other foods; Z91.010 Allergy to peanuts; Z91.013 Allergy to seafood; Z79.82 Long term (current) use of aspirin; Z79.899 Other long term (current) drug therapy
CPT/HCPCS: 74176; 99284

== ENCOUNTER 2022-08-29 09:11 | Emergency (ER) | payer MEDICAID ==
[~2022-08-29] VITALS: Ht 157.5 cm; Wt 84.1 kg
[~2022-08-29 09:11] MED LIST changes: -FLO0.4C PO; -HYDR-3965 PO; +POTA-206 PO; -POTA10TA36 PO
[2022-08-29 09:30] LABS: BASOPHILS # (AUTO) 0.1 X10'3 (0-0.2); BASOPHILS % (AUTO) 0.7 % (0-1); EOSINOPHILS # (AUTO) 0.3 X10'3 (0-0.9); HEMATOCRIT 44.7 % (35.0-45.0); HEMOGLOBIN 15.2 g/dl (12.0-16.0); LYMPHOCYTES # (AUTO) 3.3 X10'3 (1.1-4.8); LYMPHOCYTES % (AUTO) 31.4 % (21-51); MEAN CORPUSCULAR HEMOGLOBIN 31.7 PG (27.0-31.0); MEAN CORPUSCULAR VOLUME 93.3 FL (78-98); MEAN PLATELET VOLUME 8.2 FL (7.4-10.4); MONOCYTES # (AUTO) 0.8 X10'3 (0-0.9); MONOCYTES % (AUTO) 7.6 % (2-12); NEUTROPHILS # (AUTO) 5.9 X10'3 (1.8-7.7); NEUTROPHILS % (AUTO) 57.3 % (42-75); PLATELET COUNT 299 X10'3 (140-440); RED CELL DISTRIBUTION WIDTH 13.4 % (11.5-14.5); WHITE BLOOD COUNT 10.4 X10'3 (4.5-11.0)
[2022-08-29 09:45] LABS: ALANINE AMINOTRANSFERASE 31 U/L (12-78); ALBUMIN 3.8 G/DL (3.4-5.0); ALKALINE PHOSPHATASE 79 IU/L (46-116); ANION GAP 4 (8-16); ASPARTATE AMINO TRANSFERASE 14 U/L (10-37); BILIRUBIN,TOTAL 0.4 MG/DL (0.1-1.0); BLOOD UREA NITROGEN 9 MG/DL (7-18); BUN/CREATININE RATIO 9.6 (10.0-20.0); CALCIUM 9.1 MG/DL (8.5-10.1); CHLORIDE 106 MMOL/L (99-107); CREATININE 0.94 MG/DL (0.40-0.90); GLUCOSE 99 MG/DL (70-104); POTASSIUM 4.1 MMOL/L (3.5-5.1); SODIUM 139 MMOL/L (135-145); TOTAL CARBON DIOXIDE 29.1 MMOL/L (24-32); TOTAL PROTEIN 7.5 G/DL (6.4-8.2); eGFR 65 ML/MIN
[2022-08-29 09:50] LABS: MAGNESIUM 2.1 MG/DL (1.5-2.4)
[2022-08-29 12:02] VITALS: BP 116/74
[2022-08-29 12:22] LABS: CLARITY,URINE CLEAR (Clear); COLOR,URINE YELLOW (Yellow); GLUCOSE, URINE NEGATIVE (Neg); KETONES,URINE NEGATIVE (Neg); LEUKOCYTE ESTERASE ,URINE NEGATIVE (Neg); NITRITES, URINE NEGATIVE (Neg); OCCULT BLOOD,URINE NEGATIVE (Neg); PH,URINE 5.5 (4.8-8.0); PROTEIN,URINE NEGATIVE (Neg); UROBILINOGEN,URINE 0.2 E.U/dL (0.2-1.0)
[2022-08-29 12:24] LABS: URINE HCG NEGATIVE (NEG)
[2022-08-29 12:32] LABS: URINE AMPHETAMINE SCREEN NEGATIVE (Neg); URINE BARBITUATE SCREEN NEGATIVE (Neg); URINE BENZODIAZEPINES SCREEN NEGATIVE (Neg); URINE CANNABINOID SCREEN NEGATIVE (Neg); URINE COCAINE SCREEN NEGATIVE (Neg); URINE METHADONE SCREEN NEGATIVE (Neg); URINE OPIATE SCREEN NEGATIVE (Neg); URINE PHENCYCLIDINE SCREEN NEGATIVE (Neg)
[2022-08-29 12:41] LABS: UA COLLECTION TYPE CLN CATCH MIDSTREAM
== END 2022-08-29 12:00 | disposition home or self-care (01) ==
LOC: ER 09:11
DX: R07.89 Other chest pain (principal); J44.9 Chronic obstructive pulmonary disease, unspecified; G47.30 Sleep apnea, unspecified; E03.9 Hypothyroidism, unspecified; G89.29 Other chronic pain; Z98.890 Other specified postprocedural states; Z87.442 Personal history of urinary calculi; Z79.82 Long term (current) use of aspirin; Z79.899 Other long term (current) drug therapy; Z91.013 Allergy to seafood
CPT/HCPCS: 36415; 71045; 80053; 80305; 81003; 81025; 83735; 83880; 84443; 84484; 85025; 93005; 99285